=== PATIENT | female | born 1965 | race Two or more races ===

== ENCOUNTER 2019-10-01 15:04 | Inpatient (IN) | payer MEDICAID ==
[~2019-10-01] VITALS: Ht 160 cm; Wt 39.2 kg
[2019-10-01] MEDS ORDERED: IV NS 0.9% 1,000 ML BAG IV ONE (16:00)
[2019-10-01 16:21] LABS: BASOPHILS # (AUTO) 0.1 /CMM (0.0-0.2); EOSINOPHILS % (AUTO) 0.6 % (0.0-6.0); HEMATOCRIT 25 % (33-45); HEMOGLOBIN 8.3 g/dL (11.5-14.8); LYMPHOCYTES # (AUTO) 1.2 /CMM (0.8-4.8); LYMPHOCYTES % (AUTO) 13.1 % (20.0-44.0); MEAN CORPUSCULAR HGB CONC 34 g/dl (31.0-36.0); MEAN CORPUSCULAR VOLUME 106 fL (82-100); MONOCYTES # (AUTO) 0.9 /CMM (0.1-1.30); MONOCYTES % (AUTO) 9.9 % (2.0-12.0); NEUTROPHILS # (AUTO) 6.9 /CMM (1.8-8.9); NEUTROPHILS % (AUTO) 75.4 % (43.0-81.0); RED BLOOD CELL COUNT(AUTO) 2.32 MIL/uL (4.0-5.2); WHITE BLOOD COUNT (AUTO) 9.2 K/uL (4.3-11.0)
--- NOTE | 2019-10-01 16:25 | NUR ---
[id number] [facility] [address]REETS, C/O DIZZINESS. PER EMS HYPOTENSIVE. 500ML NS GIVEN ALSO C/O DIARRHEA X 1 MONTH. PT AAOX4, RR EVEN & UNLABORED. DENIES CP, SOB AT THIS TIME. PT SEEN & EVAL'D BY DR. HUANG. WILL CONT TO MONITOR.
[2019-10-01 16:26] LABS: PLATELET COUNT (AUTO) 36 /CMM (150-450)
[2019-10-01 16:38] LABS: CALCIUM, SERUM 7.7 mg/dL (8.5-10.1); CREATININE 0.6 mg/dL (0.6-1.3); POTASSIUM 3.1 mmol/L (3.5-5.1)
[2019-10-01 16:43] LABS: ALBUMIN 2.3 g/dL (3.4-5.0); BILIRUBIN,TOTAL 5.3 mg/dL (0.2-1.0); TOTAL PROTEIN, SERUM 8.8 g/dL (6.4-8.2)
[2019-10-01 16:51] LABS: BILIRUBIN,DIRECT 3.7 mg/dL (0.0-0.2)
[2019-10-01 17:04] LABS: BAND % (MANUAL) 2 % (0.0-5.0); EOSINOPHILS % (MANUAL) 2 % (0-4); LYMPHOCYTES % (MANUAL) 11 % (16-48); MONOCYTES % (MANUAL) 6 % (0-11.0); NEUTROPHILS % (MANUAL) 79 (42-76)
[2019-10-01] MEDS ORDERED: PANTOPRAZOLE 80 MG in IV NS 0.9% 500 ML IV ONE (18:30)
--- NOTE | 2019-10-01 18:54 | NUR ---
CALLED DR GAVIN FOR GI CONSULT
[2019-10-01] MEDS ORDERED: OCTREOTIDE 50 MCG/ML AMPUL SQ ONE (19:30)
--- NOTE | 2019-10-01 20:43 | NUR ---
BED ASSIGNMENT 113-1
--- NOTE | 2019-10-01 21:09 | NUR ---
ATTEMPTED TO GIVE REPORT, NURSE WILL CALL BACK
[2019-10-01] MEDS ORDERED: OCTREOTIDE 100 MCG/ML VIAL ONE (21:38)
[2019-10-01 22:00] VITALS: BP 118/71
--- NOTE | 2019-10-01 22:00 | NUR ---
patient arrived from ER, A/O X3. NO SOB NOTED, NO COMPLAIN OF PAIN. WITH DISTENDED ABDOMEN, JAUNDICED, CALL LIGHT WITHIN REACH, BED ALARM ON. BED IN LOWEST AND LOCKED POSITION. WITH RIGHT EYE BRUISE.
--- NOTE | 2019-10-01 23:10 | NUR ---
CHARGE NURSE SUKHJINDER INSERTED A NEW IV SITE ON THE LEFT WRIST GAUGE 22.
[2019-10-01] MEDS: OCTREOTIDE 500 MCG in IV NS 0.9% 99 ML IV PRN (23:13)
[2019-10-02] VITALS: BP 104/51
[2019-10-02] MEDS ORDERED: Z GUARD REMEDY 2 OZ OINT TP PRN (02:00)
[2019-10-02] MEDS ORDERED: OCTREOTIDE 1,250 MCG in IV NS 0.9% 247.5 ML IV PRN (02:00)
[2019-10-02] MEDS ORDERED: ONDANSETRON HCL/PF 4 MG/2 ML VIAL IVP PRN (02:00)
[2019-10-02] MEDS ORDERED: ZOLPIDEM TARTRATE 5 MG TABLET PO PRN (02:00)
[2019-10-02] MEDS ORDERED: Thiamine 100 MG in IV D5W 50 ML IV SCH (03:00)
[2019-10-02] MEDS: PANTOPRAZOLE 40 MG VIAL IV SCH ×2 (03:40→13:06)
[2019-10-02 04:00] VITALS: BP 126/62
--- NOTE | 2019-10-02 04:18 | NUR ---
CALLED [facility] RE: SANDOSTATIN DUPLICATE IN EMAR, SPOKE TO PYTHON DJANGO DEVELOPER AND SHE WILL FIX IT, DARIEL SLAUGHTER AWARE.
[2019-10-02] MEDS ORDERED: IV PREMIX NS +20MEQ KCL 1 L IV ONE (05:40)
[2019-10-02] MEDS ORDERED: Thiamine 100 MG/ML VIAL ONE (05:41)
--- NOTE | 2019-10-02 06:46 | NUR ---
BUNK HOUSE WORKER CLOSING NOTES: PATIENT IN BED, AWAKE A/O X4. NO COMPLAIN OF PAIN. NO SOB NOTED. CALL LIGHT WITHIN REACH. BED ALARM ON. BED IN LOWEST AND LOCKED POSITION. ABDOMEN DISTENDED. JAUNDICED. PER PAPER STACKER PATIENT HAD BM WHEN PATIENT ARRIVED FROM ER, WATERY AND YELLOWISH STOOL. WITH BLANCHABLE REDNESS ON THE SACROCOCCYX AREA, MEPILEX FOAM DRESSING APPLIED OVER. PER CN SUKHJINDER IVF WITH 40 MEQ KCL IS NOT YET AVAILABLE, WILL ENDORSE TO THE NEXT SHIFT RN.
--- NOTE | 2019-10-02 07:45 | NUR ---
WOOD TANK ERECTOR NOTES RECEIVED PT IN BED, AWAKE, A/O X4. PT TOLERATING RA, WITH NO ACUTE RESPIRATORY DISTRESS NOTED. ON TELEMONITORING WITH ST 113, DENIES ANY CHEST PAIN AT THIS TIME. PT DENIES ANY PAIN OR DISCOMFORT AT THIS TIME. IV SANDOSTATIN AT 5ML/HR TO LWRIST G22, INFUSING WELL WITH NO INFILTRATION NOTED. PIV RFA G20 SL, FLUSHED WITH NS, INTACT AND OPERATIONAL. PER NIGHT NURSE IVF NS WITH 40MEQS KCL NOT AVAILABLE AT THIS TIME AND NOT STARTED YET, WILL FOLLOW UP WITH PHARMACY. PT KEPT COMFORTABLE IN BED. CALL LIGHT KEPT WITHIN REACH. PT'S BE IN LOWEST, LOCKED POSITION WITH SRX3. WILL CONTINUE PLAN OF CARE.
[2019-10-02 08:00] VITALS: BP 127/69
[2019-10-02] MEDS: THIAMINE HCL 100 MG TABLET PO SCH (08:32)
[2019-10-02] MEDS: PROPRANOLOL HCL 10 MG TABLET PO SCH ×2 (08:33→21:22)
[2019-10-02] MEDS: MULTIVITAMINS,THERAGRAN 1 UDTAB TABLET PO SCH (08:33)
[2019-10-02] MEDS: SPIRONOLACTONE 25 MG TABLET PO SCH (08:33)
[2019-10-02] MEDS: FUROSEMIDE 40 MG TABLET PO SCH (08:33)
--- NOTE | 2019-10-02 09:12 | NUR ---
MIME ARTIST NOTES CALLED PHARMACY AND SPOKE TO SPENCER REGARDING NS WITH 40MEQS KCL NOT DELIVERED YET. PER NIGHT NURSE SHE WAS INSTRUCTED TO START NS WITH 20MEQS TO THE PT.
[2019-10-02] MEDS: ACETAMINOPHEN 325 MG TABLET PO PRN (09:32)
--- NOTE | 2019-10-02 10:04 | NUR ---
INFO ANALYST NOTES RECEIVED CALL FROM KIRK/JOSE REGARDING HIDA SCAN ORDER. PT AGREED TO HAVE IT AND CONSENT TO BE SIGNED. PT ATE BREAKFAST INFORMED MANDIEMIDavid AND PER JOSE TO KEEP NPO AT THIS TIME AND NO MORPHINE. HE'LL COME TO AGENCY APPOINTMENTS SUPERVISOR PT FOR THE PROCEDURE IN 2-3 HOURS FROM NOW. PT AWARE. WILL CONTINUE TO MONITOR.
--- NOTE | 2019-10-02 11:53 | NUR ---
STILL TENDER NOTES SEEN AND EVALUATED BY HOSPITALIST/AP, AWARE OF TODAY'S PROCEDURE HIDA SCAN AND PT CURRENTLY ON NPO. WILL CONTINUE TO MONITOR.
[2019-10-02 12:00] VITALS: BP 116/67
[2019-10-02 13:02] LABS: OCCULT BLOOD STOOL POSITIVE (NEGATIVE)
[2019-10-02] MEDS: Potassium Chloride 40 MEQ in IV NS 0.9% 1,000 ML IV PRN (13:06)
--- NOTE | 2019-10-02 13:15 | NUR ---
DIRECTOR OF INSTRUCTION NOTES PT LEFT THE UNIT FOR THE HIDA SCAN PROCEDURE. WILL CONTINUE TO MONITOR PT WHEN SHE COMES BACK.
--- NOTE | 2019-10-02 14:48 | NUR ---
FUSING MACHINE OPERATOR NOTES RECEIVED COVID RESULT NEGATIVE AND STOOL FOR OB RESULTED POSITIVE. HOSPITALIST/AP MADE AWARE. PER HIM, HE'LL PUT ORDERS. AND MENTIONED ABOUT TRANSFERRING PT, BUT HE SAID TO LET PT STAY IN THIS FLOOR. CHARGE NURSE/SOON MADE AWARE WELL.
--- NOTE | 2019-10-02 15:00 | NUR ---
STRETCHER OPERATOR NOTES PT CAME BACK FROM HIDA SCAN. WILL CONTINUE TO MONITOR.
--- NOTE | 2019-10-02 15:14 | NUR ---
NM: HIDA SCAN WAS COMPLETED, TECH:RB
[2019-10-02 16:00] VITALS: BP 109/71
--- NOTE | 2019-10-02 18:44 | NUR ---
CONCERT OR LECTURE HALL MANAGER NOTES PT REMAINS IN BED, AWAKE, A/O X4. PT TOLERATING RA, WITH NO ACUTE RESPIRATORY DISTRESS NOTED. ON TELEMONITORING WITH SR 95. PT DENIES ANY PAIN OR DISCOMFORT AT THIS TIME. IV SANDOSTATIN AT 5ML/HR TO LWRIST G22, INFUSING WELL WITH NO INFILTRATION NOTED. IVF NS WITH 40MEQS KCL TO RFA G20, FLUID INFUSING WELL. ALL NEEDS AND CARE ATTENDED. PT KEPT COMFORTABLE IN BED. CALL LIGHT KEPT WITHIN REACH. PT'S BE IN LOWEST, LOCKED POSITION WITH SRX3. WILL ENDORSE TO INCOMING NIGHT NURSE FOR TANA.
--- NOTE | 2019-10-02 19:58 | NUR ---
RN OPENING NOTE RECEIVED PT IN BED. PT IS A/A/ O X4. NO S/S OF DISTRESS. PT IS ON RA WITH UNLABORED BREATHING. PT DENIES ANY PAIN AND DISCOMFORT. TELE MONITOR SHOWING SR WITH HR IN 80s. PT HAS IV ACCESS ON RFA 20G S/L AND L WRIST 22G NS + 40 MEQ KCL RUNNING AT 100 ML/H. SAFETY MEASURES IN PLACE BED AT LOWEST POSITION, LOCKED, SIDE RAILS UP X2 , CALL LIGHT IN REACH. WILL CONTINUE TO MONITOR.
[2019-10-02 20:00] VITALS: BP 115/75
[2019-10-03] VITALS (7 sets, daily range): BP systolic 96–130; BP diastolic 57–80
[2019-10-03] MEDS: Potassium Chloride 40 MEQ in IV NS 0.9% 1,000 ML IV PRN ×3 (01:39→23:47)
[2019-10-03] MEDS: PANTOPRAZOLE 40 MG VIAL IV SCH ×2 (02:08→14:07)
[2019-10-03] MEDS: ACETAMINOPHEN 325 MG TABLET PO PRN (04:03)
--- NOTE | 2019-10-03 05:05 | NUR ---
RN NOTE TYLENOL GIVEN FOR TEMP 100.2 WITH ICE PACKS , RECHECKED TEMP IS 98.6.
--- NOTE | 2019-10-03 07:10 | NUR ---
RN OPENING NOTE RECEIVED PT IN BED. PT IS A/O O X3. NO S/S OF DISTRESS. PT IS ON RA WITH UNLABORED BREATHING. PT DENIES ANY PAIN AND DISCOMFORT. TELE MONITOR SHOWING SR WITH HR IN 90s. PT HAS IV ACCESS ON L HAND AND L WRIST 22G NS + 40 MEQ KCL RUNNING AT 100 ML/H. SAFETY MEASURES IN PLACE BED AT LOWEST POSITION, LOCKED, SIDE RAILS UP X2 , CALL LIGHT IN REACH. WILL CONTINUE TO MONITOR.
--- NOTE | 2019-10-03 07:14 | NUR ---
RN CLOSING NOTE PT IS IN STABLE CONDITION. NO ACUTE CHANGES DURING MY SHIFT. ENDORSED TO INCOMING SHIFT FOR TANA.
[2019-10-03 07:39] LABS: BASOPHILS # (AUTO) 0.1 /CMM (0.0-0.2); BASOPHILS % (AUTO) 1.1 % (0.0-2.0); EOSINOPHILS % (AUTO) 0.9 % (0.0-6.0); HEMATOCRIT 25 % (33-45); HEMOGLOBIN 8.4 g/dL (11.5-14.8); LYMPHOCYTES % (AUTO) 14.1 % (20.0-44.0); MEAN CORPUSCULAR HGB CONC 34 g/dl (31.0-36.0); MEAN CORPUSCULAR VOLUME 107 fL (82-100); MONOCYTES # (AUTO) 0.9 /CMM (0.1-1.30); MONOCYTES % (AUTO) 11.5 % (2.0-12.0); NEUTROPHILS # (AUTO) 5.4 /CMM (1.8-8.9); NEUTROPHILS % (AUTO) 72.4 % (43.0-81.0); RED BLOOD CELL COUNT(AUTO) 2.35 MIL/uL (4.0-5.2); WHITE BLOOD COUNT (AUTO) 7.4 K/uL (4.3-11.0)
[2019-10-03 07:49] LABS: PLATELET COUNT (AUTO) 42 /CMM (150-450)
[2019-10-03 07:52] LABS: ALBUMIN 2.2 g/dL (3.4-5.0); BILIRUBIN,TOTAL 7.8 mg/dL (0.2-1.0); CALCIUM, SERUM 7.8 mg/dL (8.5-10.1); CREATININE 0.4 mg/dL (0.6-1.3); MAGNESIUM 1.3 mg/dL (1.8-2.4); PHOSPHORUS 1.5 mg/dL (2.5-4.9); POTASSIUM 3.9 mmol/L (3.5-5.1); TOTAL PROTEIN, SERUM 8.2 g/dL (6.4-8.2)
[2019-10-03 07:57] LABS: THYROID STIMULATING HORMONE 1.777 uIU/mL (0.358-3.74)
[2019-10-03] MEDS ORDERED: NEUTRA PHOS 1 POWD.PACKET PO ONE (09:30)
[2019-10-03] MEDS: THIAMINE HCL 100 MG TABLET PO SCH (09:57)
[2019-10-03] MEDS: MULTIVITAMINS,THERAGRAN 1 UDTAB TABLET PO SCH (09:57)
[2019-10-03] MEDS: FUROSEMIDE 40 MG TABLET PO SCH (09:57)
[2019-10-03] MEDS: SPIRONOLACTONE 25 MG TABLET PO SCH (09:57)
[2019-10-03] MEDS: PROPRANOLOL HCL 10 MG TABLET PO SCH ×2 (09:58→21:28)
[2019-10-03] MEDS: Magnesium 1GM/D5W 100ML PREMIX 100 ML IV SCH ×4 (10:27→14:31)
[2019-10-03] MEDS: OCTREOTIDE 500 MCG in IV NS 0.9% 99 ML IV PRN (11:43)
[2019-10-03 12:18] LABS: BAND % (MANUAL) 1 % (0.0-5.0); EOSINOPHILS % (MANUAL) 1 % (0-4); LYMPHOCYTES % (MANUAL) 10 % (16-48); MONOCYTES % (MANUAL) 7 % (0-11.0); NEUTROPHILS % (MANUAL) 81 (42-76)
--- NOTE | 2019-10-03 16:10 | NUR ---
RN NOTE PATIENT AGITATED TRYING TO DISLODGE IV, REMOVED TELE LEADS, CHARGE NURSE MADE AWARE, ADMINISTERED ATIVAN 1MG IVP.
[2019-10-03] MEDS: LORAZEPAM INJ 2 MG/ML VIAL IV PRN ×2 (16:16→20:24)
--- NOTE | 2019-10-03 18:30 | NUR ---
Received report Fang/MARIO.
--- NOTE | 2019-10-03 19:30 | NUR ---
RN NOTES TRANSFER PATIENT 308-2 , ENDORSED REPORT TO LUX FOR TANA. PT A/O X 3, NAC 3L SATURATING 97%, TELE READING AT SR 90'S. NO S/S OF DISTRESS. SAFETY MEASURES PLACED.
--- NOTE | 2019-10-03 19:40 | NUR ---
SHOP TAILOR OPENING NOTES PATIENT AWAKE IN BED. A/OX2. ON 3L NC. NO S/S OF ACUTE RESPIRATORY DISTRESS; BREATHING IS EVEN AND UNLABORED. TELE MONITOR READING NSR, HEART RATE 79. IV PRESENT ON LEFT HAND, SIZE 22, INTACT & PATENT, HEP LOCKED. IV PRESENT ON LEFT WRIST, SIZE 20, INTACT & PATENT WITH KCL NS RUNNING AT 100ML/HR. SAFETY MEASURES IN PLACE AND PATIENT'S NEEDS MET. BED LOCKED, ALARM ON, SIDE RAILS X3, CALL LIGHT WITHIN REACH. WILL CONTINUE TO MONITOR.
--- NOTE | 2019-10-03 20:25 | NUR ---
MANAGER MASS NOTES PATIENT AGITATED, CONFUSED, AND TRYING TO GET OUT OF BED. PATIENT STATED SHE WAS LOOKING FOR "BEER" UNDER HER BED. PRN ATIVAN 1MG IV GIVEN. WILL CONTINUE TO MONITOR.
--- NOTE | 2019-10-04 01:35 | NUR ---
REVENUE RESEARCH ANALYST NOTES PATIENT REMAINS AGITATED AND CONFUSED. RECEIVED ORDERS FROM FANI GONZALES FOR SOFT BILATERAL WRIST RESTRAINTS FOR PATIENT SAFETY.
[2019-10-04] MEDS: PANTOPRAZOLE 40 MG VIAL IV SCH ×3 (02:39→23:45)
[2019-10-04 04:11] VITALS: BP 125/85
--- NOTE | 2019-10-04 07:00 | NUR ---
PHARMACY MESSENGER OPENING NOTES RECEIVED PATIENT AWAKE IN BED. A/OX1-2. ON 3L NC. NO SOB NOTED, NO C/O PAIN AT THIS TIME. NO S/S OF ANY ACUTE RESPIRATORY DISTRESS; BREATHING IS EVEN AND UNLABORED. PT ON EXTERNAL CARDIAC TELE MONITOR READING SR 76. IV ACCESS IN LEFT HAND, G# 22 AND LEFT WRIST G#20 BOTH INTACT & PATENT. IV ACCESS IN LEFT WRIST G#20 WITH KCL NS RUNNING AT 100ML/HR. PT NOTED WITH LEFT HEEL/POSTERIOR ANKLE RAISED DRY ESCHAR, MULTIPLE DRY ABRASIONS AND SKIN DISCOLORATIONS INCLUDING RT EYE DISCOLORATION AND SACRAL SCAR, PRESENT ON ADMISSION. PT ON BILATERAL SOFT WRIST RESTRAINS. GOOD CIRCULATION NOTED, CAPILLARY REFILL<3 SECONDS. PULSE ARE PRESENT. ASPIRATION AND SAFETY PRECAUTIONS IN PLACE. BED IN LOWEST LOCKED POSITION, BED ALARM ALARM ON, SIDE RAILS, CALL LIGHT WITHIN REACH. WILL CONTINUE TO MONITOR.
[2019-10-04 07:07] LABS: BASOPHILS # (AUTO) 0.1 /CMM (0.0-0.2); BASOPHILS % (AUTO) 1.1 % (0.0-2.0); EOSINOPHILS % (AUTO) 1.1 % (0.0-6.0); HEMATOCRIT 25 % (33-45); HEMOGLOBIN 8.5 g/dL (11.5-14.8); LYMPHOCYTES % (AUTO) 13.1 % (20.0-44.0); MEAN CORPUSCULAR HGB CONC 34 g/dl (31.0-36.0); MEAN CORPUSCULAR VOLUME 107 fL (82-100); MONOCYTES # (AUTO) 1.2 /CMM (0.1-1.30); MONOCYTES % (AUTO) 15.3 % (2.0-12.0); NEUTROPHILS # (AUTO) 5.2 /CMM (1.8-8.9); NEUTROPHILS % (AUTO) 69.4 % (43.0-81.0); RED BLOOD CELL COUNT(AUTO) 2.35 MIL/uL (4.0-5.2); WHITE BLOOD COUNT (AUTO) 7.5 K/uL (4.3-11.0)
--- NOTE | 2019-10-04 07:50 | NUR ---
SILK WASHING MACHINE OPERATOR CLOSING NOTES PATIENT SLEEPING IN BED. A/OX2. ON 3L NC. NO S/S OF ACUTE RESPIRATORY DISTRESS; BREATHING IS EVEN AND UNLABORED. TELE MONITOR READING NSR, HEART RATE 75. SOFT BILATERAL WRIST RESTRAINTS PRESENT FOR PATIENT'S SAFETY; SKIN CIRCULATION WNL. IV PRESENT ON LEFT HAND, SIZE 22, INTACT & PATENT, HEP LOCKED. IV PRESENT ON LEFT WRIST, SIZE 20, INTACT & PATENT WITH KCL NS RUNNING AT 100ML/HR. SAFETY MEASURES IN PLACE AND PATIENT'S NEEDS MET. BED LOCKED, ALARM ON, SIDE RAILS X3, CALL LIGHT WITHIN REACH. ENDORSED TO DAY SHIFT NURSE PLAN OF CARE.
--- NOTE | 2019-10-04 07:57 | NUR ---
TEAGAN, FOLD SKIVER REPORTED PT'S CRITICAL LAB VALUE FOR PLATELET COUNT 50. ILDA QUINONEZ MADE AWARE. AWAITING ORDERS, WILL CONTINUE TO MONITOR
[2019-10-04 07:58] LABS: PLATELET COUNT (AUTO) 50 /CMM (150-450)
[2019-10-04 08:00] VITALS: BP 126/65
[2019-10-04] MEDS: FUROSEMIDE 40 MG TABLET PO SCH (08:32)
[2019-10-04] MEDS: MULTIVITAMINS,THERAGRAN 1 UDTAB TABLET PO SCH (08:32)
[2019-10-04] MEDS: SPIRONOLACTONE 25 MG TABLET PO SCH (08:32)
[2019-10-04] MEDS: PROPRANOLOL HCL 10 MG TABLET PO SCH ×2 (08:32→20:50)
[2019-10-04] MEDS: THIAMINE HCL 100 MG TABLET PO SCH (08:32)
[2019-10-04 09:09] LABS: ALBUMIN 2.1 g/dL (3.4-5.0); BILIRUBIN,TOTAL 7.4 mg/dL (0.2-1.0); CALCIUM, SERUM 7.9 mg/dL (8.5-10.1); CREATININE 0.4 mg/dL (0.6-1.3); MAGNESIUM 1.9 mg/dL (1.8-2.4); PHOSPHORUS 1.9 mg/dL (2.5-4.9); POTASSIUM 4.2 mmol/L (3.5-5.1); TOTAL PROTEIN, SERUM 7.9 g/dL (6.4-8.2)
[2019-10-04 09:24] LABS: BAND % (MANUAL) 1 % (0.0-5.0); LYMPHOCYTES % (MANUAL) 7 % (16-48); MONOCYTES % (MANUAL) 12 % (0-11.0); NEUTROPHILS % (MANUAL) 80 (42-76)
--- NOTE | 2019-10-04 09:39 | NUR ---
WOUND CARE CONSULT: PT PRESENTS WITH LEFT HEEL/POSTERIOR ANKLE RAISED DRY ESCHAR, PRESENT ON ADMISSION. THERE ARE MULTIPLE DRY ABRASIONS AND SKIN DISCOLORATIONS INCLUDING RT EYE DISCOLORATION AND SACRAL SCAR, PRESENT ON ADMISSION. PT IS INCONTINENT. RECOMMENDATIONS MADE FOR SKIN PROTECTION. RECOMMEND DPM CONSULT. DR CHAMBERS NOTIFIED OF CONSULT REQUEST. WILL SEE PRN. IN AGREEMENT WITH PLAN OF CARE.
[2019-10-04] MEDS ORDERED: LACTULOSE 10 G/15 ML UDC (PYXIS) PO PRN (12:00)
[2019-10-04] MEDS: NEUTRA PHOS 1 POWD.PACKET PO SCH ×2 (13:05→14:58)
[2019-10-04] MEDS: LACTULOSE 10 G/15 ML UDC (PYXIS) PO SCH ×3 (13:05→23:45)
--- NOTE | 2019-10-04 15:51 | NUR ---
Social Service consult requested by for homelessness. Per MD notes, pt is a 54-year-old female brought in by paramedics from the streets complaining of dizziness and found to be hypotensive with complaints of vomiting and diarrhea. Patient states that she has had nausea and vomiting nonstop for the last couple of days. Patient denies any chest pain or shortness of breath. Patient has significant past medical history for portal hypertension status post esophageal varices banding. Pt was admitted for intractable nausea with alcoholic hepatitis. MANAGER TRACK consulted with MS3 CHARISMA Rangel and was informed, pt is still altered, on restraints and not able to participate in an assessment at this time. Supply Chain Tech to f/u with the when pt is alert and oriented and able to provide meaningful information.
[2019-10-04 16:00] VITALS: BP 109/60
--- NOTE | 2019-10-04 19:00 | NUR ---
MS RN OPENING NOTES PATIENT AWAKE IN BED. PATIENT REMAINED STABLE THROUGHOUT SHIFT. PT KEPT CLEAN AND DRY. ALL CALL, NEEDS, TREATMENT AND MEDICATIONS ADMINISTERED ANTICIPATED PER ORDER. PT REPOSITION Q2HRS, PRN AND PER PROTOCOL. ASPIRATION AND SAFETY PRECAUTIONS IN PLACE. BED IN LOWEST LOCKED POSITION, BED ALARM ALARM ON, SIDE RAILS, CALL LIGHT WITHIN REACH. WILL CONTINUE TO MONITOR. Addendum: 10/04/19 at 1953 by GRACIELA REDDY RN MS RN CLOSING NOTES PATIENT AWAKE IN BED. PATIENT REMAINED STABLE THROUGHOUT SHIFT. PT KEPT CLEAN AND DRY. ALL CALL, NEEDS, TREATMENT AND MEDICATIONS ADMINISTERED ANTICIPATED PER ORDER. PT REPOSITION Q2HRS, PRN AND PER PROTOCOL. ASPIRATION AND SAFETY PRECAUTIONS IN PLACE. BED IN LOWEST LOCKED POSITION, BED ALARM ALARM ON, SIDE RAILS, CALL LIGHT WITHIN REACH. WILL CONTINUE TO MONITOR.
--- NOTE | 2019-10-04 19:25 | NUR ---
MS RN OPENING PM NOTES REPORT RECIEVED FROM IMMACULATE RN. PATIENT AWAKE IN BED. RESTRAINTS WERE REMOVED. PT ALERT AND OIENTED X2 REORIENTED TO PLACE STATED WE WERE AT [facility] REORIENTED TO SURROUNDINGS VERBALIZED UNDERSTANDING TO NOT PULL ON IV TUBES OR INTERFERE WITH MEDICAL TREATMENT. SRX3 BED ALARM ACTIVE. PT MOVING IN BED INDEPENDENTLY. SKIN IS SEVERELY JUANDICED. PATIENT HAS MINOR HAND TREMORS. ASPIRATION AND SAFETY PRECAUTIONS IN PLACE. BED IN LOWEST LOCKED POSITION, BED ALARM ALARM ON, SIDE RAILS, CALL LIGHT WITHIN REACH. WILL CONTINUE TO MONITOR.
[2019-10-04 20:47] VITALS: BP 110/63
[2019-10-04] MEDS: Potassium Chloride 40 MEQ in IV NS 0.9% 1,000 ML IV PRN (20:50)
[2019-10-05] MEDS: LACTULOSE 10 G/15 ML UDC (PYXIS) PO SCH ×4 (06:36→23:58)
[2019-10-05] MEDS: Potassium Chloride 40 MEQ in IV NS 0.9% 1,000 ML IV PRN ×2 (06:36→23:58)
--- NOTE | 2019-10-05 06:50 | NUR ---
MS RN OPENING PM NOTES PATIENT IN BED. SRX3 BED ALARM ACTIVE. PT MOVING IN BED INDEPENDENTLY. PATIENT STILL HAVING MINOR HAND TREMORS. ASPIRATION AND SAFETY PRECAUTIONS IN PLACE. BED IN LOWEST LOCKED POSITION, BED ALARM ALARM ON, SIDE RAILS, CALL LIGHT
[2019-10-05 07:04] LABS: BASOPHILS # (AUTO) 0.1 /CMM (0.0-0.2); BASOPHILS % (AUTO) 1.6 % (0.0-2.0); EOSINOPHILS % (AUTO) 1.1 % (0.0-6.0); HEMATOCRIT 26 % (33-45); HEMOGLOBIN 8.5 g/dL (11.5-14.8); LYMPHOCYTES # (AUTO) 1.2 /CMM (0.8-4.8); LYMPHOCYTES % (AUTO) 18.5 % (20.0-44.0); MEAN CORPUSCULAR HGB CONC 33 g/dl (31.0-36.0); MEAN CORPUSCULAR VOLUME 107 fL (82-100); MONOCYTES # (AUTO) 1.2 /CMM (0.1-1.30); NEUTROPHILS % (AUTO) 60.8 % (43.0-81.0); PLATELET COUNT (AUTO) 63 /CMM (150-450); RED BLOOD CELL COUNT(AUTO) 2.39 MIL/uL (4.0-5.2); WHITE BLOOD COUNT (AUTO) 6.6 K/uL (4.3-11.0)
[2019-10-05 07:10] LABS: ALBUMIN 2.1 g/dL (3.4-5.0); BILIRUBIN,TOTAL 6.9 mg/dL (0.2-1.0); CREATININE 0.7 mg/dL (0.6-1.3); MAGNESIUM 1.6 mg/dL (1.8-2.4); PHOSPHORUS 3.5 mg/dL (2.5-4.9); POTASSIUM 3.9 mmol/L (3.5-5.1); TOTAL PROTEIN, SERUM 7.9 g/dL (6.4-8.2)
--- NOTE | 2019-10-05 07:37 | NUR ---
MS RN OPENING NOTES RECEIVED PATIENT IN BED, AWAKE, A/O X3. PATIENT IS ON ROOM AIR; BREATHING IS EVEN AND UNLABORED; NO SOB NOTED AT THIS TIME. PATIENT DENIES AND REPORTS SLIGHT DIZZINESS. L WRIST IV ACCESS G#20 PRESENT AND INTACT INFUSING LR. SAFETY PRECAUTIONS IN PLACE; BED IN LOW POSITION AND LOCKED, RAILS UP X2, CALL LIGHT WITHIN REACH. WILL CONTINUE TO MONITOR PATIENT.
[2019-10-05 08:00] VITALS: BP 110/60
[2019-10-05] MEDS: THIAMINE HCL 100 MG TABLET PO SCH (08:17)
[2019-10-05] MEDS: MULTIVITAMINS,THERAGRAN 1 UDTAB TABLET PO SCH (08:17)
[2019-10-05] MEDS: SPIRONOLACTONE 25 MG TABLET PO SCH (08:17)
[2019-10-05] MEDS: FUROSEMIDE 40 MG TABLET PO SCH (08:17)
[2019-10-05] MEDS: PROPRANOLOL HCL 10 MG TABLET PO SCH ×2 (08:20→20:41)
[2019-10-05] MEDS: Magnesium 1GM/D5W 100ML PREMIX 100 ML IV SCH ×2 (09:59→10:27)
[2019-10-05 10:37] LABS: EOSINOPHILS % (MANUAL) 1 % (0-4); LYMPHOCYTES % (MANUAL) 17 % (16-48); MONOCYTES % (MANUAL) 13 % (0-11.0); NEUTROPHILS % (MANUAL) 69 (42-76)
--- NOTE | 2019-10-05 11:52 | NUR ---
Social service consult requested by MD for homelessness. Per MD notes, pt is a 54-year-old female brought in by paramedics from the streets complaining of dizziness and found to be hypotensive with complaints of vomiting and diarrhea. Patient states that she has had nausea and vomiting nonstop for the last couple of days. Patient denies any chest pain or shortness of breath. Patient has significant past medical history for portal hypertension status post esophageal varices banding. PLUSH WEAVER conducted chart review and met with the pt bedside. PLUSH WEAVER introduced self, explained the role of the SW and purpose of the visit. Pt is alert and oriented x 4 with appropriate affect. Pt reports, she has been homeless for the past 7 months. Prior to being homeless, pt was residing in an apartment with her 29 year old son. Pt lost her job and couldn't afford the apartment anymore. Pt currently resides with her son in a tent located at [facility] and [facility] in [place]. Prior to hospitalization, pt was ambulatory and independent with her ADLs and IADLs. Pt's emergency contact is her sister Nandini . Pt denies any drug use, however pt does drink alcohol daily. Pt reports to drink 2 to 3 beers per day. Pt has no history of attending an alcohol treatment program and is not interested in going to one at this time. Pt does not receive food stamps or GR. PLUSH WEAVER encouraged pt to apply for Food stamps and GR with [employer]. Pt denies any psychiatric diagnosis and hospitalizations. Pt denies suicidal and homicidal ideations at this time. PLUSH WEAVER provided pt with active listening, emotional support, supportive counseling, validation of feelings and positive coping skills. Warm handoff provided to tomorrow's SW Carmita to provide pt with homeless resources related to COVID-19 packet. Homeless patient Charu will need to be signed by the pt prior to discharge. Pt will need a TAP card upon discharge. Medical Education Coordinator to continue to be available for support as needed. PLUSH WEAVER updated MS 3 CHARISMA Rangel and pt's bedside MARIO Feliciano with aforementioned information.
[2019-10-05] MEDS: PANTOPRAZOLE 40 MG VIAL IV SCH (13:08)
[2019-10-05 16:00] VITALS: BP 100/60
--- NOTE | 2019-10-05 18:34 | NUR ---
MS RN CLOSING NOTES PATIENT IN BED, AWAKE, A/O X3 AND WATCHING TV. PATIENT IS ON ROOM AIR; BREATHING IS EVEN AND UNLABORED; NO SOB NOTED DURING THE SHIFT. L WRIST IV ACCESS G#20 PRESENT AND INTACT INFUSING LR AT 100 MLS/HR. ALL NEEDS ATTENDED TO THROUGHOUT THE DAY. SAFETY PRECAUTIONS IN PLACE; BED IN LOW POSITION AND LOCKED, RAILS UP X2, CALL LIGHT WITHIN REACH. WILL ENDORSE TO BENEFITS CONSULTANT NURSE.
--- NOTE | 2019-10-05 19:41 | NUR ---
MS MARIO OPEN NOTES PATIENT IS LAYING IN BED. A/O X2 WITH PERIODS OF CONFUSION. PT KEEPS STATING SHE NEEDS TO GO TO THE DENTIST. ON RA, NO SOB/ ACUTE RESPIRATORY DISTRESS NOTED. NO COMPLAINTS OF PAIN AT THE MOMENT. BED IS IN LOWEST LOCKED POSITION WITH SIDE RAILS UP X3, SEMI FOWLERS. CALL LIGHT IS WITHIN REACH. WILL CONTINUE TO MONITOR.
[2019-10-05 20:38] VITALS: BP 121/67
[2019-10-05] MEDS: ACETAMINOPHEN 325 MG TABLET PO PRN (20:40)
[2019-10-05] MEDS: LORAZEPAM INJ 2 MG/ML VIAL IV PRN (21:21)
[2019-10-06] MEDS: PANTOPRAZOLE 40 MG VIAL IV SCH ×2 (01:33→09:08)
[2019-10-06] MEDS: LACTULOSE 10 G/15 ML UDC (PYXIS) PO SCH ×4 (05:36→23:41)
--- NOTE | 2019-10-06 06:34 | NUR ---
MS RN CLOSE NOTES PATIENT IS LAYING IN BED. A/O X3 WITH PERIODS OF CONFUSION. ON RA, NO SOB/ ACUTE RESPIRATORY DISTRESS NOTED. IV IN L WRIST #20G IS PATENT AND INTACT. APPEARS COMFORTABLE/ NO COMPLAINTS OF PAIN AT THE MOMENT. BED IS IN LOWEST LOCKED POSITION WITH SIDE RAILS UP X3, SEMI FOWLERS. CALL LIGHT IS WITHIN REACH. WILL ENDORSE TO AM NURSE.
[2019-10-06 06:43] LABS: CALCIUM, SERUM 8.4 mg/dL (8.5-10.1); CREATININE 0.7 mg/dL (0.6-1.3); MAGNESIUM 2.2 mg/dL (1.8-2.4); PHOSPHORUS 3.7 mg/dL (2.5-4.9); POTASSIUM 3.8 mmol/L (3.5-5.1)
[2019-10-06 06:52] LABS: BASOPHILS # (AUTO) 0.2 /CMM (0.0-0.2); EOSINOPHILS % (AUTO) 1.6 % (0.0-6.0); HEMATOCRIT 25 % (33-45); HEMOGLOBIN 8.4 g/dL (11.5-14.8); LYMPHOCYTES # (AUTO) 1.1 /CMM (0.8-4.8); LYMPHOCYTES % (AUTO) 19.1 % (20.0-44.0); MEAN CORPUSCULAR HGB CONC 34 g/dl (31.0-36.0); MEAN CORPUSCULAR VOLUME 108 fL (82-100); MONOCYTES # (AUTO) 0.9 /CMM (0.1-1.30); MONOCYTES % (AUTO) 16.7 % (2.0-12.0); NEUTROPHILS # (AUTO) 3.3 /CMM (1.8-8.9); NEUTROPHILS % (AUTO) 59.6 % (43.0-81.0); PLATELET COUNT (AUTO) 73 /CMM (150-450); RED BLOOD CELL COUNT(AUTO) 2.33 MIL/uL (4.0-5.2); WHITE BLOOD COUNT (AUTO) 5.6 K/uL (4.3-11.0)
[2019-10-06 08:00] VITALS: BP 99/61
[2019-10-06 08:39] LABS: BAND % (MANUAL) 2 % (0.0-5.0); EOSINOPHILS % (MANUAL) 3 % (0-4); LYMPHOCYTES % (MANUAL) 17 % (16-48); MONOCYTES % (MANUAL) 12 % (0-11.0); NEUTROPHILS % (MANUAL) 66 (42-76)
[2019-10-06] MEDS: SPIRONOLACTONE 25 MG TABLET PO SCH (09:00)
[2019-10-06] MEDS: PROPRANOLOL HCL 10 MG TABLET PO SCH ×2 (09:00→20:22)
--- NOTE | 2019-10-06 09:00 | NUR ---
MS/RN Medications Morning medications administered as ordered, no difficulty swallowing.
[2019-10-06] MEDS: MULTIVITAMINS,THERAGRAN 1 UDTAB TABLET PO SCH (09:08)
[2019-10-06] MEDS: THIAMINE HCL 100 MG TABLET PO SCH (09:08)
[2019-10-06] MEDS: FUROSEMIDE 40 MG TABLET PO SCH (09:09)
--- NOTE | 2019-10-06 10:59 | NUR ---
MS/RN S/B ILDA Nieves Seen by EMS MANAGER - discharge to be held today due to temperature spike overnight. ID consulted for antibiotic recommendations.
--- NOTE | 2019-10-06 11:08 | NUR ---
MS/RN Labs Morning labs reviewed: -H&H .07/09
--- NOTE | 2019-10-06 13:00 | NUR ---
JEAN NOTE: SW followed up with pt, per NEHAL Vee's request. JEAN provided the pt with [facility] homeless resources and inquired about pt's plan upon discharge. Pt reported she plans to return to her tent to visit her son, then she will proceed to call residential resources to arrange an alternative living situation. Pt reported she is trying to arrange her own transportation upon discharge to help her get to her location. If pt is unable to arrange her own transportation, she will require a TAP card upon discharge. JEAN will inform CRN. JEAN also provided the pt with bus routes as the pt reported needing guidance. Pt signed Homeless Waiver; SW filled the document in the pt's chart. food services director available for support as needed.
[2019-10-06] MEDS ORDERED: CEFTRIAXONE 2 G in IV NS 0.9% 100 ML IV SCH (15:00)
--- NOTE | 2019-10-06 15:00 | NUR ---
MS/RN IVAB IVAB pardeep ordered, no reaction noted.
[2019-10-06 16:00] VITALS: BP 100/56
--- NOTE | 2019-10-06 18:38 | NUR ---
MS/RN End note Patient remains in stable condition, no new concerns, will endore to tablet repair. Urne still to be collected for UA.
--- NOTE | 2019-10-06 19:09 | NUR ---
MS RN NOTES PATIENT IN BED, AWAKE, ALERT AND ORIENTED X 3. BREATHING EVEN AND UNLABORED ON ROOM AIR. SHOWS NO SIGNS OF ACUTE RESPIRATORY DISTRESS. NO ACUTE PAIN. IV ON L WRIST SL. SHOWS NO SIGNS OF INFILTRATION, NO REDNESS. SAFETY PRECAUTIONS IN PLACE. BED IN LOWEST POSITION, LOCKED, AND CALL LIGHT KEPT WITHIN REACH. WILL CONTINUE TO MONITOR.
[2019-10-06 20:00] VITALS: BP 113/61
[2019-10-06] MEDS: METRONIDAZOLE 500 MG TABLET PO SCH (20:19)
[2019-10-06] MEDS: LEVOFLOXACIN 500 MG /D5W 100ML 500 MG in PREMIX 1 EA IV SCH (21:52)
[2019-10-07] MEDS: PANTOPRAZOLE 40 MG VIAL IV SCH ×2 (01:59→13:16)
[2019-10-07] MEDS: LACTULOSE 10 G/15 ML UDC (PYXIS) PO SCH ×4 (05:45→23:43)
[2019-10-07] MEDS: METRONIDAZOLE 500 MG TABLET PO SCH ×3 (05:45→20:43)
--- NOTE | 2019-10-07 06:42 | NUR ---
MS RN NOTES PATIENT IN BED, ASLEEP, ALERT AND ORIENTED X 3. BREATHING EVEN AND UNLABORED ON ROOM AIR. SHOWS NO SIGNS OF ACUTE RESPIRATORY DISTRESS. NO ACUTE PAIN. IV ON R FOREARM 22G SL. SHOWS NO SIGNS OF INFILTRATION, NO REDNESS. ALL DUE MEDICATIONS GIVEN. SAFETY PRECAUTIONS IN PLACE. BED IN LOWEST POSITION, LOCKED, AND CALL LIGHT KEPT WITHIN REACH. WILL ENDORSE TO ONCOMING NURSE.
[2019-10-07 07:06] LABS: BASOPHILS # (AUTO) 0.1 /CMM (0.0-0.2); BASOPHILS % (AUTO) 0.8 % (0.0-2.0); HEMATOCRIT 28 % (33-45); HEMOGLOBIN 9.4 g/dL (11.5-14.8); LYMPHOCYTES # (AUTO) 1.1 /CMM (0.8-4.8); LYMPHOCYTES % (AUTO) 18.3 % (20.0-44.0); MEAN CORPUSCULAR HGB CONC 33 g/dl (31.0-36.0); MEAN CORPUSCULAR VOLUME 107 fL (82-100); MONOCYTES # (AUTO) 1.1 /CMM (0.1-1.30); MONOCYTES % (AUTO) 17.7 % (2.0-12.0); NEUTROPHILS # (AUTO) 3.9 /CMM (1.8-8.9); NEUTROPHILS % (AUTO) 62.2 % (43.0-81.0); PLATELET COUNT (AUTO) 87 /CMM (150-450); RED BLOOD CELL COUNT(AUTO) 2.64 MIL/uL (4.0-5.2); WHITE BLOOD COUNT (AUTO) 6.2 K/uL (4.3-11.0)
[2019-10-07 07:08] LABS: CREATININE 0.8 mg/dL (0.6-1.3); MAGNESIUM 1.7 mg/dL (1.8-2.4); PHOSPHORUS 3.9 mg/dL (2.5-4.9); POTASSIUM 3.7 mmol/L (3.5-5.1)
--- NOTE | 2019-10-07 07:35 | NUR ---
MS RN NOTES RECEIVED PT IN BED, AWAKE, A/O X3. PT TOLERATING RA WITH NO ACUTE RESPIRATORY DISTRESS NOTED. PT DENIES ANY PAIN OR DISCOMFORT AT THIS TIME. PT DENIES PAIN OR DISCOMFORT AT THIS TIME. PT DENIES CONCERNS OR QUESTIONS AT THIS MOMENT WELL. PIV TO RFA G22 SL, FLUSHED WITH NS, INTACT AND OPERATIONAL. PT KEPT COMFORTABLE IN BED. CALL LIGHT KEPT WITHIN REACH. PT'S BED IN LOWEST, LOCKED POSITION WITH SRX3. WILL CONTINUE PLAN OF CARE.
[2019-10-07 08:00] VITALS: BP 100/58
[2019-10-07] MEDS: MULTIVITAMINS,THERAGRAN 1 UDTAB TABLET PO SCH (08:30)
[2019-10-07] MEDS: PROPRANOLOL HCL 10 MG TABLET PO SCH ×2 (08:30→20:48)
[2019-10-07] MEDS: SPIRONOLACTONE 25 MG TABLET PO SCH (08:30)
[2019-10-07] MEDS: THIAMINE HCL 100 MG TABLET PO SCH (08:30)
[2019-10-07] MEDS: FUROSEMIDE 40 MG TABLET PO SCH (08:30)
[2019-10-07 09:04] LABS: BAND % (MANUAL) 2 % (0.0-5.0); LYMPHOCYTES % (MANUAL) 16 % (16-48); MONOCYTES % (MANUAL) 17 % (0-11.0); NEUTROPHILS % (MANUAL) 65 (42-76)
[2019-10-07] MEDS: Potassium Chloride 40 MEQ in IV NS 0.9% 1,000 ML IV PRN ×2 (10:19→22:23)
[2019-10-07] MEDS: Magnesium 1GM/D5W 100ML PREMIX 100 ML IV SCH ×2 (10:46→11:55)
--- NOTE | 2019-10-07 12:27 | NUR ---
MS RN NOTES RECEIVED A CALL FROM HERIBERTO GUEVARA COMMISSION FOR THE BLIND DIRECTOR FROM [facility] AND STATED SHE IS WORKING FOR A PLACE WHERE PATIENT CAN LIVE AFTER DISCHARGE.
[2019-10-07 16:00] VITALS: BP 109/65
--- NOTE | 2019-10-07 19:15 | NUR ---
MS RN NOTES PT IN BED, AWAKE, A/O X3. PT TOLERATING RA WITH NO ACUTE RESPIRATORY DISTRESS NOTED. PT DENIES ANY PAIN OR DISCOMFORT AT THIS TIME. PT DENIES PAIN OR DISCOMFORT AT THIS TIME. IVF NS WITH KCL 40MEQS TO RFA G22 SL, INTACT AND OPERATIONAL. PT KEPT COMFORTABLE IN BED. ALL NEEDS AND CARE ATTENDED. CALL LIGHT KEPT WITHIN REACH. PT'S BED IN LOWEST, LOCKED POSITION WITH SRX3. WILL ENDORSE TO INCOMING NIGHT NURSE FOR TANA.
[2019-10-07 19:44] LABS: APPEARANCE,URINE CLEAR (CLEAR); BILIRUBIN,URINE MODERATE (NEGATIVE); BLOOD, URINE LARGE Ery/uL (NEGATIVE); COLOR,URINE YELLOW (YELLOW); KETONES,URINE NEGATIVE (NEGATIVE); LEUKOCYTE ESTERASE ,URINE TRACE (NEGATIVE); NITRITE, URINE POSITIVE (NEGATIVE); PROTEIN,URINE NEGATIVE (NEGATIVE); UGLUCOSE NEGATIVE (NEGATIVE); UROBILINOGEN,URINE 0.2 EU/dL (0.2)
[2019-10-07 19:58] LABS: BACTERIA,URINE 3+ /HPF (None Seen); HYALINE CASTS, URINE Few /LPF (None Seen); MUCUS,URINE RARE /LPF (None Seen); SQUAMOUS EPITHELIAL CELL,UR 0-2 /HPF (None Seen)
[2019-10-07 20:00] VITALS: BP 115/79
--- NOTE | 2019-10-07 20:00 | NUR ---
POLYETHYLENE COMBINER: RECEIVED REPORT FORM TI MARTIN AT 1915. PT IN BED, AWAKE, A/O X2, FORGETFUL AT TIMES, NEEDS FREQUENT REORIENTATION. ON RA RESPIRATIONS EVEN AND UNLABORED. PT DENIES ANY PAIN OR DISCOMFORT AT THIS TIME. PT RECEIVED PHONE CALL FROM SON. PT HAS IV ACCESS ON RIGHT FA G 22 PATENT AND FLUSHING WELL, INFUSING WITH KCL 40MEQ ON 1L NS INFUSING AT 100ML/HR. PT HAD TOTAL OF 8 LOOSE BM DURING DAY SHIFT, MD AWARE, PT ON LACTULOSE PO Q6HRS AMMONIA LEVEL 56. ORDER FROM ID TO COLLECT STOOL FOR CDIFF AND OVA PARASITE DAY RN TI RELAYED TO [facility] HOSPITALIST, PER HOSPITALIST SINCE PT ON LACTULOSE IT IS EXPECTED PT WEILL HAVE DIARRHEA, WILL INFORM ID. SAFETY PRECAUTIONS FOR FALL INITIATED, CALL LIGHT IN REACH, WILL CONTINUE MONITORING PT.
[2019-10-07] MEDS: LEVOFLOXACIN 500 MG /D5W 100ML 500 MG in PREMIX 1 EA IV SCH (20:31)
[2019-10-07 20:47] VITALS: BP 100/62
--- NOTE | 2019-10-07 21:30 | NUR ---
RN NOTES: PT NOTED TO BE TRYING TO GET OUT OF BED, PT REMAINS A/O X2, FREQUENT REORIENTATION PROVIDED, BOILER HOUSE OPERATOR MARIA LUISA STAYED AT THE PT FOR THE MEAN TIME. PT ROOM CLOSER TO THE STATION. FALL PRECAUTION SECURED, BED ALARM SECURED, BED IN LOWEST POSITION. WILL CONTINUE MONITORING PT.
[2019-10-08] VITALS: BP 111/66
--- NOTE | 2019-10-08 00:16 | NUR ---
PRN AMBIEN: PT STATED SHE CANT SLEEP, AND BEEN TRYING TO SLEEP, PRN AMBIEN 5MG TAB PO ADMINISTERED TO PT AT THIS TIME. WILL CONTINUE MONITORING PT.
[2019-10-08] MEDS: PANTOPRAZOLE 40 MG VIAL IV SCH ×2 (01:51→14:00)
[2019-10-08] MEDS: METRONIDAZOLE 500 MG TABLET PO SCH ×3 (05:30→20:20)
[2019-10-08] MEDS: LACTULOSE 10 G/15 ML UDC (PYXIS) PO SCH ×3 (05:30→17:34)
--- NOTE | 2019-10-08 06:20 | NUR ---
rn notes: transferred pt to room 206-2, order for sitter in am, as pt high fall risk episode of trying to jump out of bed last night. pt on lactulose. all belongings sent with pt upon transfer to new room. also tried to get stool sample for ova and parasite, unfortunately because its too liquid and only with tiny particles , difficult to collect, able to collect specimen but very little, per braydon from lab unable to accept specimen as stool specimen needs to be at least half of the container for ova parasite. will relay to day rn to collect again.
[2019-10-08 06:34] LABS: BASOPHILS # (AUTO) 0.1 /CMM (0.0-0.2); BASOPHILS % (AUTO) 0.8 % (0.0-2.0); EOSINOPHILS % (AUTO) 1.2 % (0.0-6.0); HEMATOCRIT 27 % (33-45); HEMOGLOBIN 8.9 g/dL (11.5-14.8); LYMPHOCYTES # (AUTO) 1.2 /CMM (0.8-4.8); LYMPHOCYTES % (AUTO) 19.8 % (20.0-44.0); MEAN CORPUSCULAR HGB CONC 34 g/dl (31.0-36.0); MEAN CORPUSCULAR VOLUME 108 fL (82-100); MONOCYTES # (AUTO) 0.9 /CMM (0.1-1.30); MONOCYTES % (AUTO) 15.3 % (2.0-12.0); NEUTROPHILS # (AUTO) 3.8 /CMM (1.8-8.9); NEUTROPHILS % (AUTO) 62.9 % (43.0-81.0); PLATELET COUNT (AUTO) 108 /CMM (150-450); RED BLOOD CELL COUNT(AUTO) 2.47 MIL/uL (4.0-5.2); WHITE BLOOD COUNT (AUTO) 6.1 K/uL (4.3-11.0)
--- NOTE | 2019-10-08 06:48 | NUR ---
END OF SHIFT REPORT: pt remains a/o x2-3, re-directable, able to make needs known, on ra respirations even and unlabored, appears calm and comfortable, denies any pain at this time. iv access remains patent and flushing well, infusing with ns + 40meq kcl at 100ml/hr, no s/s of iv infiltration noted. pt had total of 3 loose bm, on lactulose po q6hrs as scheduled. prn ambien administered for sleeping. able to sleep for approximately 3hrs. all due meds administered. vs remains stable, needs attended. pt will have 1:1 sitter in am. PLAN OF CARE: CONTINUE IV ATB, MONITOR AMMONIA LEVEL. Safety precautions for fall remains engaged, call light in reach, will endorse to day rn me for continuity of care.
[2019-10-08 07:05] LABS: CALCIUM, SERUM 8.5 mg/dL (8.5-10.1); CREATININE 0.7 mg/dL (0.6-1.3); PHOSPHORUS 3.4 mg/dL (2.5-4.9); POTASSIUM 4.4 mmol/L (3.5-5.1)
--- NOTE | 2019-10-08 07:34 | NUR ---
MS RN NOTES RECEIVED PT IN BED, AWAKE, A/O X3. SITTER 1:1. PT TOLERATING RA WITH NO ACUTE RESPIRATORY DISTRESS NOTED. PT DENIES ANY PAIN OR DISCOMFORT AT THIS TIME. PT DENIES PAIN OR DISCOMFORT AT THIS TIME. PT DENIES CONCERNS OR QUESTIONS AT THIS MOMENT WELL. IVF NS WITH KCL 40MEQS TO RFA G22 SL, FLUSHED WITH NS, INTACT AND OPERATIONAL. PT KEPT COMFORTABLE IN BED. CALL LIGHT KEPT WITHIN REACH. PT'S BED IN LOWEST, LOCKED POSITION WITH SRX3. WILL CONTINUE PLAN OF CARE.
[2019-10-08 08:00] VITALS: BP 102/66
[2019-10-08] MEDS: PROPRANOLOL HCL 10 MG TABLET PO SCH ×2 (09:00→20:43)
[2019-10-08] MEDS: SPIRONOLACTONE 25 MG TABLET PO SCH (09:02)
[2019-10-08] MEDS: MULTIVITAMINS,THERAGRAN 1 UDTAB TABLET PO SCH (09:02)
[2019-10-08] MEDS: THIAMINE HCL 100 MG TABLET PO SCH (09:02)
[2019-10-08] MEDS: FUROSEMIDE 40 MG TABLET PO SCH (09:03)
[2019-10-08] MEDS: Potassium Chloride 40 MEQ in IV NS 0.9% 1,000 ML IV PRN ×2 (09:36→19:57)
[2019-10-08] MEDS ORDERED: MULT-24 PO (12:01)
[2019-10-08] MEDS ORDERED: PROP10TA68 PO (12:01)
[2019-10-08] MEDS ORDERED: FURO40TA5 PO (12:01)
[2019-10-08] MEDS ORDERED: Thiamine HCL PO (12:01)
[2019-10-08] MEDS ORDERED: METR500T PO (12:01)
[2019-10-08] MEDS ORDERED: SPIR25TA6 PO (12:01)
[2019-10-08] MEDS ORDERED: LACT10SO58 PO (12:01)
[2019-10-08] MEDS ORDERED: LEVO500T75 PO (12:01)
[2019-10-08 16:00] VITALS: BP 93/53
--- NOTE | 2019-10-08 17:52 | NUR ---
MS RN NOTES PER PT, SON/TONIAFIRILIANA WILL COME TONIGHT TO PICK HER UP. WILL ENDORSE TO INCOMING NIGHT NURSE FOR TANA.
--- NOTE | 2019-10-08 19:25 | NUR ---
document review attorney: pt in the room, pt for dc tonight awaiting curing pickling packer by family member at 1930. all dc paperworks completed by day rn, photos taken. pt dc home, self care. pt a/o x2-3, calm and cooperative, respirations even and unlabored. iv access patent and flushing well, infusing with ns with 40meq kcl at 100ml/hr. safety precaution for fall initiated, call light in reach, will continue monitoring pt.
--- NOTE | 2019-10-08 19:27 | NUR ---
MS RN NOTES PT IN BED, AWAKE, A/O X3. PT TOLERATING RA WITH NO ACUTE RESPIRATORY DISTRESS NOTED. PT DENIES ANY PAIN OR DISCOMFORT AT THIS TIME. IVF NS WITH KCL 40MEQS TO RFA G22 SL, FLUSHED WITH NS, INTACT AND OPERATIONAL. PT KEPT COMFORTABLE IN BED.ALL NEEDS AND CARE ATTENDED. CALL LIGHT KEPT WITHIN REACH. PT'S BED IN LOWEST, LOCKED POSITION WITH SRX3. WILLENDORSE TO INCOMING NIGHT NURSE FOR TANA.
[2019-10-08 19:53] VITALS: BP 102/61
[2019-10-08] MEDS: LEVOFLOXACIN 500 MG /D5W 100ML 500 MG in PREMIX 1 EA IV SCH (19:57)
[2019-10-08 20:00] VITALS: BP 102/61
--- NOTE | 2019-10-08 20:06 | NUR ---
rn notes: awaiting for son to strip picker pt, pt dc home, self care. bed bath provided to pt. complete linen change provided.
[2019-10-08 20:40] VITALS: BP 116/74
[2019-10-08] MEDS: ACETAMINOPHEN 325 MG TABLET PO PRN (20:43)
--- NOTE | 2019-10-08 20:43 | NUR ---
prn tylenol: pt c/o head ache 05/24 requesting for tylenol. ps 05/24, prn tylenol 650 mg tab po administered to pt at this time.
--- NOTE | 2019-10-08 21:30 | NUR ---
rn notes: no call receive from family/son/bf, no phone number to be called, nothing shown on face sheet except tel number [phone], pt stated she doesn't know the number of son and bf, per pt seems like she wont be coal picker by family [place] because its already late, notified [facility] hospitalist financial analysis consultant, stated okay to stay tonight. will be dc in am, family to coal picker pt.
[2019-10-09] MEDS: LACTULOSE 10 G/15 ML UDC (PYXIS) PO SCH ×3 (00:30→13:21)
[2019-10-09] MEDS: PANTOPRAZOLE 40 MG VIAL IV SCH ×2 (01:28→13:21)
[2019-10-09] MEDS: METRONIDAZOLE 500 MG TABLET PO SCH ×2 (05:58→13:16)
--- NOTE | 2019-10-09 06:57 | NUR ---
end of shift report: pt remains a/o x2-3 with periods of confusion. respirations even and unlabored. iv access remains patent and flushing well, infusing with ns + 40meq kcl at 100ml/hr. no s/s of iv infiltration noted. total of 2 loose bm. pt on lactulose. pt dc home, self care, awaiting pickle water pump operator by family (son/bf). am care, bed bath and wound care provided to pt. vs remains stable, needs attended. safety precautions for fall remains engaged, call light in reach, will endorse to day rn for continuity of care.
--- NOTE | 2019-10-09 07:58 | NUR ---
MS RN OPENING NOTE RECEIVED PATIENT IN BED RESTING COMFORTABLY. PATIENT IN NO ACUTE DISTRESS. NO SOB NOTED. PATIENT BREATHING IS EVEN AND UNLABORED. PATIENT BED ALARM IS ON. SAFETY PRECAUTIONS IN PLACE. INSTRUCTED TO USE CALL LIGHT FOR ANY ASSISTANCE. FALL PRECAUTIONS IN PLACE. PATIENT BED IS LOCKED AND IN LOWEST POSITION. CALL LIGHT WITHIN REACH. WILL CONTINUE TO MONITOR.
[2019-10-09 08:00] VITALS: BP 109/63
[2019-10-09] MEDS: SPIRONOLACTONE 25 MG TABLET PO SCH (08:31)
[2019-10-09] MEDS: FUROSEMIDE 40 MG TABLET PO SCH (08:31)
[2019-10-09] MEDS: THIAMINE HCL 100 MG TABLET PO SCH (08:31)
[2019-10-09 08:32] VITALS: BP 109/63
[2019-10-09] MEDS: PROPRANOLOL HCL 10 MG TABLET PO SCH (08:32)
[2019-10-09] MEDS: MULTIVITAMINS,THERAGRAN 1 UDTAB TABLET PO SCH (08:32)
--- NOTE | 2019-10-09 11:30 | NUR ---
MS RN NOTE PATIENT COMPLIANT WITH PHYSICAL THERAPY. PATIENT AMBULATORY WITH STEADY GAIT DURING PT.
--- NOTE | 2019-10-09 16:00 | NUR ---
MS TRACK LINER OPERATOR NOTE PATIENT MEDICALLY CLEARED FOR DISCHARGE. PATIENT IN NO ACUTE DISTRESS. NO SOB NOTED. PATIENT BREATHING IS EVEN AND UNLABORED. PATIENT DC INSTRUCTIONS PROVIDED AND FOLLOW UP VISITS EXPLAINED. PATIENT VERBALIZED UNDERSTANDING. PATIENT IV REMOVED. ID BAND REMOVED. PATIENT SKIN ASSESSED, NO NEW SKIN BREAKDOWN NOTED. PATIENT HAS BELONGINGS WITH HER AND SIGNED BELONGINGS LIST. PATIENT KEPT CLEAN, DRY, AND COMFORTABLE THROUGHOUT SHIFT. NEEDS AND CONCERNS ADDRESSED. PATIENT IS HOMELESS AND GIVEN PANTS BEFORE DISCHARGE TO GO BACK TO TENT. PATIENT PROVIDED RESOURCES FOR HOMELESS SHELTERS. PATIENT PREFERS HER TENT. PATIENT GIVEN BUS TAP CARD TO GO BACK TO TENT. HOMELESS WAIVER FORM SIGNED. PATIENT AMBULATORY WITH STEADY GAIT AND HAS DC PAPERWORK AND MEDICATION PRESCRIPTION WITH HER. MD AWARE OF DISCHARGE.
[2019-10-09] MEDS ORDERED: LEVOFLOXACIN (500MG) 500 MG TABLET PO SCH (18:00)
== END 2019-10-09 16:00 | disposition home or self-care (01) | DRG 253 ==
LOC: ER 15:06 → TELE1 20:50 → TELE 10-03 19:19 → MED 10-04 09:37 → MEDSG2 10-06 21:01
PROVIDERS: ADMIT Nurse Practitioner Acute Care; ATTEND Registered Nurse
DX: K92.2 Gastrointestinal hemorrhage, unspecified (principal); K76.6 Portal hypertension; E87.1 Hypo-osmolality and hyponatremia; E87.6 Hypokalemia; K70.10 Alcoholic hepatitis without ascites; K80.00 Calculus of gallbladder with acute cholecystitis without obstruction; K72.90 Hepatic failure, unspecified without coma; K70.31 Alcoholic cirrhosis of liver with ascites; D53.9 Nutritional anemia, unspecified; D69.6 Thrombocytopenia, unspecified; D68.9 Coagulation defect, unspecified; Z98.890 Other specified postprocedural states; F17.200 Nicotine dependence, unspecified, uncomplicated; E83.39 Other disorders of phosphorus metabolism; I10 Essential (primary) hypertension; J90 Pleural effusion, not elsewhere classified; J98.11 Atelectasis; N39.0 Urinary tract infection, site not specified; B96.89 Other specified bacterial agents as the cause of diseases classified elsewhere; Z59.0 Homelessness; L89.523 Pressure ulcer of left ankle, stage 3; M62.562 Muscle wasting and atrophy, not elsewhere classified, left lower leg; M62.561 Muscle wasting and atrophy, not elsewhere classified, right lower leg; M20.42 Other hammer toe(s) (acquired), left foot; M20.41 Other hammer toe(s) (acquired), right foot; K70.30 Alcoholic cirrhosis of liver without ascites; A09 Infectious gastroenteritis and colitis, unspecified; E72.20 Disorder of urea cycle metabolism, unspecified
CPT/HCPCS: 36415; 70450-TC; 70486-TC; 71045-TC; 76705-TC; 78226; 80048-TC; 80053-TC; 80061-TC; 80076-TC; 81000-TC; 82140-TC; 82272-TC; 83540-TC; 83735-TC; 84100-TC; 84443-TC; 85025-TC; 85730-TC; 86850-TC; 87040-TC; 87081-TC; 87086-TC; 93307-TC; 97116-TC; 97530-TC; A4216; A9537; C9113; G0378; J0696; J1956; J2060; J2354; J3411; J3475; J3480; J3490; J7030; J7040; J7050; J7060; U0003-CS